=== PATIENT | female | born 1955 | race Caucasian/White ===

== ENCOUNTER 2024-03-25 14:55 | Outpatient (AMB) | payer MEDICARE, BC, SELFPAY ==
--- OUTSIDE RECORDS SUMMARY | 2024-03-25 14:57 | XMS_ITS ---
Author Organization [facility] Address [address] [place] [address] Care Team Providers Care Physiotherapy Practice Manager Name Role Phone Maite Quan MD Primary Care Provider [phone] Active Problems Problem Noted Date Diagnosed Date Osteopenia of multiple sites 11/24/2022 Malignant neoplasm of upper- outer quadrant of left breast in female, estrogen receptor positive 04/26/2021 Cancer Staging:Pathologic stage from 05/26/2021:Stage IA(pT1a, pN0, cM0, G2, ER+, IA+, HER2-) - Signed by Caesar Prince MD on 08/03/2021 Current Oncology Plans No current plan information found. Past Plans ONCOLOGY TREATMENT Plan Name Start Date Discontinue Date Treatment Medications Discontinue Reason Plan Provider Cycles [facility] TRASTUZUMAB ( NO LOAD), [id number], X1 YEAR (1.5/1 HR) -- 13 treatments 022 11/24/2022 albuterol (PROVENTIL)diphenhydr AMINE (BENADRYL)EPINEPHrine famotidine (PF) (PEPCID)hydrocortison e (SOLU-CORTEF) IVmeperidine (DEMEROL) 25 MG/MLSaline Flush 0.9 %sodium chloride (NS) 0.9 %sodium chloride 0.9% bolus (NS)trastuzumab-qyyp (TRAZIMERA) infusion Therapy Complete Caesar Prince MD 13 of 13 cycles started [facility] OP PACLITAXEL WEEKLY / TRASTUZUMAB WEEKLY (5 HRS) 08/26/19 22 12/14/2021 albuterol (PROVENTIL)dexamethas one (DECADRON)dexamethaso ne sod phosphate PF (DECADRON)diphenhydrA MINE (BENADRYL)EPINEPHrine famotidine (PEPCID)famotidine (PF) (PEPCID)hydrocortison e (SOLU-CORTEF) IVmeperidine (DEMEROL) 25 MG/MLPACLitaxel (TAXOL) chemo infusionpalonosetron (ALOXI)Saline Flush 0.9 %sodium chloride (NS) 0.9 %sodium chloride 0.9% bolus (NS)TRASTUZUMAB INFUSIONtrastuzumab-q yyp (TRAZIMERA) infusion Therapy Complete [place]ram[place] Caesar Sainz MD 4 of 4 cycles started Radiation Treatments * No radiation treatments are documented for this patient in [facility]. Treatments may have been administered in another system.
--- OUTSIDE RECORDS SUMMARY | 2024-03-25 14:57 | XMS_ITS | Clinical Summary ---
Author Organization [facility] Address [address] [place] [address] Care Team Providers Care Photostatic Copy Maker Name Role Phone Maite Quan MD Primary Care Provider [phone] Allergies No known active allergies Medications Medication Sig Dispensed Refills Start Date End Date Status atorvastatin (LIPITOR) tablet 10 mg Take 1 tablet (10 mg total) by mouth daily. 0 03/01/2021 Active FLUoxetine (PROzac) 20 MG capsule Take 1 capsule (20 mg total) by mouth daily. 0 03/07/2021 Active fluticasone (FLONASE) 50 MCG/ACT nasal spray spray/apply 1 spray in each nostril daily. 0 Active ondansetron (ZOFRAN-ODT) 8 MG disintegrating tablet Take 1 tablet (8 mg total) by mouth every 8 (eight) hours as needed for nausea. 15 tablet 11 08/25/2021 Active lidocaine-prilocaine (EMLA) cream Apply topically as needed. To mediport area 1 hour prior to access 30 g 0 08/25/2021 Active Biotin 5000 MCG CAPS Take by mouth. 0 Active anastrozole (ARIMIDEX) 1 MG tablet Take 1 tablet (1 mg total) by mouth daily 90 tablet 3 11/24/2022 Active Active Problems Problem Noted Date Diagnosed Date Osteopenia of multiple sites 11/24/2022 Malignant neoplasm of upper- outer quadrant of left breast in female, estrogen receptor positive 04/26/2021 Cancer Staging:Pathologic stage from 05/26/2021:Stage IA(pT1a, pN0, cM0, G2, ER+, AK+, HER2-) - Signed by Caesar Prince MD on 08/03/2021 Family History Medical History Relation Name Comments Cancer Father Hypertension Father Diabetes Mother Cancer Paternal Aunt Relation Name Status Comments Father Mother Paternal Aunt Alive Social History Tobacco Use Types Packs/Day Years Used Date Smoking Tobacco: Former Cigarettes 1 Q uit: 02/07/1988 Smokeless Tobacco: Never Alcohol Use Standard Drinks/Week Comments Yes 5 (1 standard drink = 0.6 oz pur e alcohol) Sex and Gender Information Value Date Recorded Sex Assigned at Male 10/13/2021 11:18 AM EDT Gender Identity Not on file Sexual Orientation Not on file Job Start Date Occupation Industry Not on file Not on file Not on file Last Filed Vital Signs Vital Sign Reading Time Taken Comments Blood Pressure 137/72 10/03/2023 10:52 AM EDT Pulse 62 10/03/2023 10:52 AM EDT Temperature 36.4 ??C (97.6 ??F) 10/03/2023 10:52 AM E DT Respiratory Rate 18 08/03/2022 10:10 AM EDT Oxygen Saturation 99% 10/03/2023 10:52 AM EDT Inhaled Oxygen Concentration - - Weight 61.3 kg (135 lb 3.2 oz) 10/03/2023 10:52 AM EDT Height 164.5 cm (5' 4.76 ) 03/09/2022 10:[address] Body Mass Index 22.66 03/09/2022 10:23 AM EST Plan of Treatment Health Maintenance Due Date Last Done Comments Hepatitis C Screening 1955 Depression Screening 1967 Preventative Health Evaluation 10/24/1973 Shingrix-Zoster Vaccine (1 of 2) 10/24/1974 Colon Cancer Screening (Colonoscopy) 10/24/2000 Breast Cancer Screening (Mammogram) 10/24/2005 DTap / Tdap / Td (2 - Td or Tdap) 02/22/2017 02/22/2007 Fall Risk Assessment 10/24/2020 Osteoporosis Screening (DEXA Scan) 10/24/2020 COVID-19 Vaccine ( season) 2023 08/06/2021, 11/09/2020, 03/06/2020, Additional history exists Influenza Vaccine (#1) 2023 , 10/22/2020, 10/22/2020, Additional history exists RSV Adult > 60+ Yrs or (1 - 1-dose 75+ series) 10/24/2030 Pneumococcal Vaccine Completed 05/09/2022, 05/08/19 Hepatitis B Vaccines Aged Out No long er eligible based on patient's age to complete this topic RSV Ped < 20 months Aged Out No longe r eligible based on patient's age to complete this topic Care Teams Photostatic Copy Maker Relationship Specialty Start Date End Date Maite Quan MD PCP - General Internal Medicine 04/26/21
--- OUTSIDE RECORDS SUMMARY | 2024-03-25 14:58 | XMS_ITS | Encounter Summary ---
Author Organization [facility] Address [address] [place] [address] Care Team Providers Care Literary Agent Name Role Phone Maite Quan MD Primary Care Provider Reason for Referral * Imaging (Routine) - Closed Specialty Diagnoses / Procedures Referred By Contac t Referred To Contact Radiology Diagnoses Other specified disorders of bone density and structure, multiple sites Procedures BD Bone Density DXA Axial Skeleton Caesar Tovar MD [address] [place] [phone] Phone: tel: fax: [address] [phone] Phone: tel: Referral ID Status Reason Start Date Expiration Date Visits Re quested Visits Authorized [id number] Closed 02/01/2024 01/31/2025 1 1 Reason for Visit * Imaging (Routine) - Closed Specialty Diagnoses / Procedures Referred By Contac t Referred To Contact Radiology Diagnoses Other specified disorders of bone density and structure, multiple sites Procedures BD Bone Density DXA Axial Skeleton Caesar Tovar MD [address] [place] [phone] Phone: tel: fax: [address] [phone] Phone: tel: Referral ID Status Reason Start Date Expiration Date Visits Re quested Visits Authorized [id number] Closed 02/01/2024 01/31/2025 1 1 Encounter Details Date Type Department Care Team (Latest Contact Info) Description 03/12/2024 10:13 AM EST - 03/12/2024 11:59 PM EST Hospital Encounter [facility] Bone Density [address] [place] [phone] Other specified disorders of bone density and structure, multiple sites Discharge Disposition: Home or Self Care Social History Tobacco Use Types Packs/Day Years Used Date Smoking Tobacco: Former Cigarettes Q uit: 02/07/1988 Smokeless Tobacco: Never Alcohol Use Standard Drinks/Week Comments Yes 5 (1 standard drink = 0.6 oz pur e alcohol) Comments Unknown Sex and Gender Information Value Date Recorded Sex Assigned at Female 03/11/2024 1:04 PM EST Legal Sex Female 9:53 AM EST Gender Identity Female 03/11/2024 1:04 PM EST Sexual Orientation Straight 03/11/2024 1: 04 PM EST documented as of this encounter Medications at Time of Discharge anastrozole (ARIMIDEX) 1 mg Take 1 tablet (1 mg total) by mouth 1 (one) time each day 90 tablet 3 01/10/2024 atorvastatin (LIPITOR) 10 mg tablet Take 1 tablet (10 mg total) by mouth at bedtime. 90 tablet 02/19/2024 biotin 5 mg capsule Take by mouth. FLUoxetine (PROzac) 20 mg capsule TAKE 1 CAPSULE BY MOUTH EVERY DAY 90 capsule 1 02/21/2024 fluticasone propionate (FLONASE) 50 mcg/actuation nasal spray spray/apply 1 spray in each nostril daily. lidocaine-prilocaine (EMLA) 2.5-2.5 % cream Apply topically as needed. To mediport area 1 hour prior to access 08/25/2021 ondansetron ODT (ZOFRAN-ODT) 8 mg disintegrating tablet Take 1 tablet (8 mg total) by mouth every 8 (eight) hours as needed for nausea. 08/25/2021 documented as of this encounter Discharge Disposition Disposition Code Departure Means Destination Home or Self Care documented in this encounter Plan of Treatment Upcoming Encounters Date Type Department Care Team (Late st Contact Info) Description 04/03/2024 10:45 AM EST Office Visit [facility] Hematology Oncology [address] [place] [phone] Caesar Tovar MD [address] [place] [phone] 05/14/2024 10:15 AM EDT Office Visit General Surgery - [place] [address] [phone] Nuvia Fonseca MD [address] [id number] 05/21/2024 11:00 AM EDT Office Visit Adult Medicine [address] [phone] Maite Quan MD [address] [place] [address] 10/22/2024 9:30 AM EDT Appointment Radiology Department - [address] [phone] documented as of this encounter Procedures Procedure Name Priority Date/Time Associated Diagnosis Comments BD BONE DENSITY DXA AXIAL SKELETON Routine 03/12/2024 10:34 AM EST Other specified disorders of bone density and structure, multiple sites documented in this encounter Results * BD Bone Density DXA Axial Skeleton (03/12/2024 10:34 AM EST) Anatomical Region Laterality Modality Wrist, Hip, L-spine Bone Densito metry 03/12/2024 1:55 PM EST Impressions 03/12/2024 1:56 PM EST Osteoporosis. ? Telerad LUISITO ([id number]) -------- FINAL REPORT -------- Dictated By: Twyla Ferrera Dictated Date: 03/12/2024 13:55 ET Assigned Physician: Twyla Ferrera Reviewed and Electronically Signed By: Twyla Ferrera Signed Date: 03/12/2024 13:56 ET Workstation ID: [id number] Transcribed By: Self Edit Transcribed Date: 03/12/2024 13:55 ET Narrative 03/12/2024 1:56 PM EST History: Low estrogen state due to menopause. Personal history of breast carcinoma, on anastrozole. Comparison: No comparison imaging at this institution. Findings: Bone densitometry is performed utilizing dual energy x-ray absorptiometry (DXA) in the [employer]ensear Prodigy unit. The lumbar spine and proximal femora are evaluated in the AP projection. The FRAX questionaire was completed. The results indicate osteoporosis, with a right femoral neck T-score of -3.1. The Z score is -1.4, indicating low bone mineral density for age. ??The detailed DEXA report will be mailed to the referring physician's office. DualFemur FRAX: 10-year Probability of Fracture: Major Osteoporotic 18.5 percent ??Hip 6.1 percent. Procedure Note Twyla Ferrera MD - 03/12/2024 History: Low estrogen state due to menopause. Personal history of breastcarcinoma, on anastrozole. Comparison: No comparison imaging at this institution. Findings: Bone densitometry is performed utilizing dual energy x-ray absorptiometry(DXA) in the Lunar Prodigy unit. The lumbar spine and proximal femora areevaluated in the AP projection. The FRAX questionaire was completed. The results indicate osteoporosis, with a right femoral neck T-score of-3.1. The Z score is -1.4, indicating low bone mineral density for age.The detailed DEXA report will be mailed to the referring physician'soffice. DualFemur FRAX: 10-year Probability of Fracture: Major Osteoporotic 18.5percent Hip 6.1 percent. IMPRESSION: Osteoporosis. Telepaula JORGE ([id number]) -------- FINAL REPORT -------- Dictated By: Twyla Ferrera Dictated Date: 03/12/2024 13:55 ET Assigned Physician: Twyla Ferrera Reviewed and Electronically Signed By: Twyla Ferrera Signed Date: 03/12/2024 13:56 ET Workstation ID: [id number] Transcribed By: Self Edit Transcribed Date: 03/12/2024 13:55 ET Caesar Tovar MD IMG DXA PROCEDURES Final Result documented in this encounter Visit Diagnoses Diagnosis Other specified disorders of bone density and structure, multiple sites Malignant neoplasm of upper-outer quadrant of left breast in female, estrogen receptor positive (CMS/HCC)- Primary Osteopenia of multiple sites Encounter for screening mammogram for breast cancer documented in this encounter Care Teams Literary Agent Relationship Specialty Start Date End Date Maite Quan MD [address] [place] [address] PCP - General 12/22/03 documented as of this encounter
--- OUTSIDE RECORDS SUMMARY | 2024-03-25 14:58 | XMS_ITS | Clinical Summary ---
Author Organization [facility] Address [address] [place] [phone] Phone Care Team Providers Care Manufacturer Agent Name Role Phone Maite Quan MD Primary Care Provider [phone] Allergies No known active allergies Medications biotin 5 mg capsule Take by mouth. Active fluticasone propionate (FLONASE) 50 mcg/actuation nasal spray spray/apply 1 spray in each nostril daily. Active lidocaine-prilocai ne (EMLA) 2.5-2.5 % cream Apply topically as needed. To [facility] area 1 hour prior to access 2 Active ondansetron ODT (ZOFRAN-ODT) 8 mg disintegrating tablet Take 1 tablet (8 mg total) by mouth every 8 (eight) hours as needed for nausea. 2 Active anastrozole (ARIMIDEX) 1 mg Take 1 tablet (1 mg total) by mouth 1 (one) time each day 90 tablet 3 4 Active FLUoxetine (PROzac) 20 mg capsule TAKE 1 CAPSULE BY MOUTH EVERY DAY 90 capsule 1 5 Active atorvastatin (LIPITOR) 10 mg tablet Take 1 tablet (10 mg total) by mouth at bedtime. 90 tablet 5 Active Active Problems Problem Noted Date Diagnosed Date Malignant neoplasm of upper- outer quadrant of left breast in female, estrogen receptor positive 10/20/2023 Osteopenia of multiple sites 11/24/2022 Encounters Date Type Department Care Team Description 03/12/2024 10:13 AM EST - 03/12/2024 11:59 PM EST Hospital Encounter [facility] Bone Density [address] [place] [address] Other specified disorders of bone density and structure, multiple sites Discharge Disposition: Home or Self Care from Last 3 Months Immunizations Name Administration Dates Next Due Pfizer SARS-CoV-2 COVID-19, mRNA, LNP-S, preservative free 08/06/2021,03/06/2020,02/14/2020 Surgical History Surgery Date Site/Laterality Comments CATARACT EXTRACTION, BILATERAL PROCEDURE:CATARACT EXTRACTION, BILATERAL COLONOSCOPY PROCEDURE:COLONOSCOPY LIPOMA RESECTION PROCEDURE:LIPOMA RESECTION;COMMENT:elbow CATARACT EXTRACTION Bilateral PROCEDURE: HISTORICAL CATARACT REMOVAL OTHER SURGICAL HISTORY Left PROCEDURE: ---- OTHER ----; COMMENT: lt lumpectomy w rad & chemo BREAST BIOPSY PROCEDURE: BX BREAST; PERC NEEDLE CORE W/IMAG GUID BREAST SURGERY PROCEDURE: ME UNLISTED PROCEDURE BREAST Medical History Medical History Date Comments Osteopenia DX:Osteopenia Lipoma DX:Lipoma;COMMEN T:right upper extremity Hyperlipidemia DX:Hyperlipidemi a Depression DX:Depression Iron deficiency anemia DX:Iron d eficiency anemia Depressive disorder, not els ewhere classified 04/29/2005 DX:Depressive disorder, not elsewhere classified Iron deficiency anemia, unspecified 04/29/2005 DX:Iron deficiency anemia, unspecified Malignant neoplasm of upper- outer quadrant of left breast in female, estrogen receptor positive (CMS/HCC) 04/26/2021 DX:Malignant neop lasm of upper-outer quadrant of left breast in female, estrogen receptor positive (HCC) Family History Medical History Relation Name Comments Cancer Father Hypertension Father Lung cancer Father hypertensi on, parkinson's Cancer Father's Sister Diabetes Mother biliary cirrohi s from meds, fatty liver Other: Other Mother parathyroid dis ease Breast cancer Mother's side 1st cousin Colon cancer Other paternal aunt a nd uncle (stomach) Colon cancer Neg Hx Ovarian cancer Neg Hx Pancreatic cancer Neg Hx Prostate cancer Neg Hx Uterine cancer Neg Hx Relation Name Status Comments Father Father's Sister Alive Mother Mother's side 1st cousin Alive Other Social History Tobacco Use Types Packs/Day Years [...] Orientation Straight 03/11/2024 1: 04 PM EST Obstetrics History Last Filed Vital Signs Vital Sign Reading Time Taken Comments Blood Pressure 119/69 11/21/2023 10:18 AM EDT Pulse 70 11/21/2023 10:18 AM EDT Temperature - - Respiratory Rate - - Oxygen Saturation - - Inhaled Oxygen Concentration - - Weight 61.7 kg (136 lb) 11/21/2023 10:18 AM EDT Height 165.1 cm (5' 5 ) 11/21/2023 10:18 AM EDT Body Mass Index 22.63 11/21/2023 10:18 AM EDT Plan of Treatment Upcoming Encounters Date Type Department Care Team (Late st Contact Info) Description 04/03/2024 10:45 AM EST Office Visit [facility] Hematology Oncology [address] [place] [phone] Caesar Tovar MD [address] [place] [phone] 05/14/2024 10:15 AM EDT Office Visit General Surgery [facility] [address] [phone] Nuvia Fonseca MD [address] [address] 05/21/2024 11:00 AM EDT Office Visit Adult Medicine [address] [phone] Maite Quan MD [address] [place] [address] 10/22/2024 9:30 AM EDT Appointment Radiology Department - [address] [phone] Health Maintenance Due Date Last Done Comments Zoster Vaccines (1 of 2) 10/24/1974 RSV Immunization Patients 60+ Years Old (1 - Risk 60-74 years 1-dose series) 2015 Colorectal Cancer Screening: FIT-DNA (Cologuard) 01/14/2022 Depression Screening 01/14/2022 Falls Risk Assessment 01/14/2022 Hepatitis C Screening 01/14/2022 Medicare Annual Wellness Visit 01/14/2022 Social Influencers of Health Screening 01/14/2022 Breast Cancer Screening 10/10/2025 10/11/19, 10/11/2023, 09/29/2022, Additional history exists DTaP,Tdap,and Td Vaccines (3 - Td or Tdap) 09/01/2027 08/31/2017, 02/22/2007 Cholesterol Screening (Lipid Panel) 11/20/2028 11/21/2023 Osteoporosis Screening (Bone Density Screening) 03/12/2034 03/12/2024, 03/25/2022, 03/13/2019 Pneumococcal Vaccine: 50+ Years Completed 05/09/2022, 05/07/2021 COVID-19 Vaccine Completed 11/14/2023, , 06/15/2022, Additional history exists Influenza Vaccine Completed 11/14/2023, , 12/10/2021, Additional history exists HIB Vaccines Aged Out No longer eligi ble based on patient's age to complete this topic HPV Vaccines Aged Out No longer eligi ble based on patient's age to complete this topic Hepatitis A Vaccines Aged Out No long er eligible based on patient's age to complete this topic Hepatitis B Vaccines Aged Out No long er eligible based on patient's age to complete this topic IPV Vaccines Aged Out No longer eligi ble based on patient's age to complete this topic MMR Vaccines Aged Out No longer eligi ble based on patient's age to complete this topic Meningococcal ACWY Vaccine Aged Out N o longer eligible based on patient's age to complete this topic Meningococcal B Vacine Aged Out No lo nger eligible based on patient's age to complete this topic RSV Immunization Patients Under 20 months Aged Out No longer eligible based on patient's age to complete this topic Varicella Vaccines Aged Out No longer eligible based on patient's age to complete this topic Procedures Procedure Name Priority Date/Time Associated Diagnosis Comments BD BONE DENSITY DXA AXIAL SKELETON Routine 03/12/2024 10:34 AM EST Other specified disorders of bone density and structure, multiple sites DIAGNOSTIC MAMMOGRAPHY INCLUDING CAD BILATERAL Routine 10/11/2023 9:41 AM EDT Personal history of malignant neoplasm of breast from Last 3 Months or Most Recently Relevant to Health Maintenance Results * BD Bone Density DXA Axial Skeleton (03/12/2024 10:34 AM EST) Anatomical Region Laterality Modality Wrist, Hip, L-spine Bone Densito metry 03/12/2024 1:55 PM EST Impressions 03/12/2024 1:56 PM EST Osteoporosis. ? Telerad LUISITO ([id number]) -------- FINAL REPORT -------- Dictated By: Twyla Ferrera Dictated Date: 03/12/2024 13:55 ET Assigned Physician: Twyla Ferrera Reviewed and Electronically Signed By: Twyla Ferrera Signed Date: 03/12/2024 13:56 ET Workstation ID: [id number] Transcribed By: Self Edit Transcribed Date: 03/12/2024 13:55 ET Narrative 03/12/2024 1:56 PM EST History: Low estrogen state due to menopause. Personal history of breast carcinoma, on anastrozole. Comparison: No comparison imaging at this institution. Findings: Bone densitometry is performed utilizing dual energy x-ray absorptiometry (DXA) in the [employer] unit. The lumbar spine and proximal femora [...] utilizing dual energy x-ray absorptiometry(DXA) in the [employer] unit. The lumbar spine and proximal femora [...] Osteoporotic 18.5percent Hip 6.1 percent. IMPRESSION: Osteoporosis. Telerad LUISITO ([id number]) -------- FINAL REPORT -------- Dictated By: Twyla Ferrera Dictated Date: 03/12/2024 13:55 ET Assigned Physician: Twyla Ferrera Reviewed and Electronically Signed By: Twyla Ferrera Signed Date: 03/12/2024 13:56 ET Workstation ID: [id number] Transcribed By: Self Edit Transcribed Date: 03/12/2024 13:55 ET us Subramony Subcece-Alistair PASTRANA IMG DXA PROCEDURES Final Result * DIAGNOSTIC MAMMOGRAPHY INCLUDING CAD BILATERAL (10/11/2023 9:41 AM EDT) Anatomical Region Laterality Modality Mammography 09/29/2022 9:31 AM EDT Narrative 10/11/2023 9:59 AM EDT This is a summary report. The complete report is available in the patient's medical record. If you cannot access the medical record, please contact the sending organization for a detailed fax or copy. History: Personal history of left lumpectomy for breast cancer in May 2021. Study: Bilateral diagnostic mammography with tomosynthesis and CAD Technique: Bilateral full-field digital diagnostic mammography is obtained and read in conjunction with computer aided detection. ??Tomosynthesis as well as 2D C- View imaging were obtained. Comparison: Comparison made to multiple priors, most recent September 29, 2022, and most remote April 30, 2009. Breast composition: The breast tissue is heterogeneously dense, which may obscure small masses. Right breast: No suspicious masses, suspicious calcifications or other abnormalities are seen. Left breast: Postlumpectomy changes. ??No suspicious masses, suspicious calcifications or other abnormalities are seen. IMPRESSION: Impression: Bilateral breasts: Benign, no specific mammographic evidence of malignancy. ??Normal interval follow-up is recommended in 12 months. BI-RADS: Category 2: Benign [address] [id number] [phone] [id number] Procedure Note Brian Rowley MD - 11/22/2023 This is a summary report. The complete report is available in thepatient's medical record. If you cannot access the medical record, pleasecontact the sending organization for a detailed fax or copy. History: Personal history of left lumpectomy for breast cancer in May2021. Study: Bilateral diagnostic mammography with tomosynthesis and CAD Technique: Bilateral full-field digital diagnostic mammography is obtainedand read in conjunction with computer aided detection. Tomosynthesis aswell as 2D C-View imaging were obtained. Comparison: Comparison made to multiple priors, most recent September, and most remote April 30, 2009. Breast composition: The breast tissue is heterogeneously dense, which mayobscure small masses. Right breast: No suspicious masses, suspicious calcifications or otherabnormalities are seen. Left breast: Postlumpectomy changes. No suspicious masses, suspiciouscalcifications or other abnormalities are seen. IMPRESSION: Impression: Bilateral breasts: Benign, no specific mammographic evidence ofmalignancy. Normal interval follow-up is recommended in 12 months. BI-RADS: Category 2: Benign [address] [address] [id number] Maite Quan MD IMG BI PROCEDURES Final Result from Last 3 Months or Most Recently Relevant to Health Maintenance Insurance MEDICARE [facility] Advance Directives Documents on File Type Date Recorded Patient Crystal Cutter Expl anation Health Care Decision (hx) 08/31/2021 AD MUÑOZ DIRECTIVE Health Care Decision (hx) 08/31/2021 AD MUÑOZ DIRECTIVE Health Care Decision (hx) 08/31/2021 AD MUÑOZ DIRECTIVE Health Care Decision (hx) 08/31/2021 AD MUÑOZ DIRECTIVE Health Care Decision (hx) 08/31/2021 AD MUÑOZ DIRECTIVE Health Care Decision (hx) 08/31/2021 AD MUÑOZ DIRECTIVE Health Care Decision (hx) 08/31/2021 AD MUÑOZ DIRECTIVE Health Care Decision (hx) 08/31/2021 AD MUÑOZ DIRECTIVE Health Care Decision (hx) 08/31/2021 AD MUÑOZ DIRECTIVE Health Care Decision (hx) 08/31/2021 AD MUÑOZ DIRECTIVE Health Care Decision (hx) 08/31/2021 AD MUÑOZ DIRECTIVE Health Care Decision (hx) 08/31/2021 AD MUÑOZ DIRECTIVE Health Care Decision (hx) 08/31/2021 AD MUÑOZ DIRECTIVE Health Care Decision (hx) 08/31/2021 AD MUÑOZ DIRECTIVE Health Care Decision (hx) 08/31/2021 AD MUÑOZ DIRECTIVE Health Care Decision (hx) 08/31/2021 AD MUÑOZ DIRECTIVE Health Care Decision (hx) 08/31/2021 AD MUÑOZ DIRECTIVE Health Care Decision (hx) 08/31/2021 AD MUÑOZ DIRECTIVE Health Care Decision (hx) 08/31/2021 AD MUÑOZ DIRECTIVE Health Care Decision (hx) 08/31/2021 AD MUÑOZ DIRECTIVE Health Care Decision (hx) 08/31/2021 AD MUÑOZ DIRECTIVE Health Care Decision (hx) 08/31/2021 AD MUÑOZ DIRECTIVE Health Care Decision (hx) 08/31/2021 AD MUÑOZ DIRECTIVE Health Care Decision (hx) 08/31/2021 AD MUÑOZ DIRECTIVE Health Care Decision (hx) 08/31/2021 AD MUÑOZ DIRECTIVE Health Care Decision (hx) 08/31/2021 AD MUÑOZ DIRECTIVE Health Care Decision (hx) 08/31/2021 AD MUÑOZ DIRECTIVE Health Care Decision (hx) 08/31/2021 AD MUÑOZ DIRECTIVE Health Care Decision (hx) 08/31/2021 AD MUÑOZ DIRECTIVE Health Care Decision (hx) 08/31/2021 AD MUÑOZ DIRECTIVE Health Care Decision (hx) 08/31/2021 AD MUÑOZ DIRECTIVE Health Care Decision (hx) 08/31/2021 AD MUÑOZ DIRECTIVE Health Care Decision (hx) 08/31/2021 AD MUÑOZ DIRECTIVE Health Care Decision (hx) 08/31/2021 AD MUÑOZ DIRECTIVE Health Care Decision (hx) 08/31/2021 AD MUÑOZ DIRECTIVE Health Care Decision (hx) 08/31/2021 AD MUÑOZ DIRECTIVE Health Care Decision (hx) 05/25/2021 AD MUÑOZ DIRECTIVE Health Care Decision (hx) 05/25/2021 AD MUÑOZ DIRECTIVE Health Care Decision (hx) 05/25/2021 AD MUÑOZ DIRECTIVE Health Care Decision (hx) 05/25/2021 AD MUÑOZ DIRECTIVE Health Care Decision (hx) 05/25/2021 AD MUÑOZ DIRECTIVE Health Care Decision (hx) 05/25/2021 AD MUÑOZ DIRECTIVE Health Care Decision (hx) 05/25/2021 AD MUÑOZ DIRECTIVE Health Care Decision (hx) 05/25/2021 AD MUÑOZ DIRECTIVE Health Care Decision (hx) 05/25/2021 AD MUÑOZ DIRECTIVE Health Care Decision (hx) 05/25/2021 AD MUÑOZ DIRECTIVE Health Care Decision (hx) 05/25/2021 AD MUÑOZ DIRECTIVE Health Care Decision (hx) 05/25/2021 AD MUÑOZ DIRECTIVE Health Care Decision (hx) 05/25/2021 AD MUÑOZ DIRECTIVE Health Care Decision (hx) 05/25/2021 AD MUÑOZ DIRECTIVE Health Care Decision (hx) 05/25/2021 AD MUÑOZ DIRECTIVE Health Care Decision (hx) 05/25/2021 AD MUÑOZ DIRECTIVE Health Care Decision (hx) 05/25/2021 AD MUÑOZ DIRECTIVE Health Care Decision (hx) 05/25/2021 AD MUÑOZ DIRECTIVE Health Care Decision (hx) 05/25/2021 AD MUÑOZ DIRECTIVE Health Care Decision (hx) 05/25/2021 AD MUÑOZ DIRECTIVE Health Care Decision (hx) 05/25/2021 AD MUÑOZ DIRECTIVE Health Care Decision (hx) 05/25/2021 AD MUÑOZ DIRECTIVE Health Care Decision (hx) 05/25/2021 AD MUÑOZ DIRECTIVE Health Care Decision (hx) 05/25/2021 AD MUÑOZ DIRECTIVE Health Care Decision (hx) 05/25/2021 AD MUÑOZ DIRECTIVE Health Care Decision (hx) 05/25/2021 AD MUÑOZ DIRECTIVE Health Care Decision (hx) 05/25/2021 AD MUÑOZ DIRECTIVE Health Care Decision (hx) 05/25/2021 AD MUÑOZ DIRECTIVE Health Care Decision (hx) 05/25/2021 AD MUÑOZ DIRECTIVE Health Care Decision (hx) 05/25/2021 AD MUÑOZ DIRECTIVE Health Care Decision (hx) 05/25/2021 AD MUÑOZ DIRECTIVE Health Care Decision (hx) 05/25/2021 AD MUÑOZ DIRECTIVE Health Care Decision (hx) 05/25/2021 AD MUÑOZ DIRECTIVE Health Care Decision (hx) 05/25/2021 AD MUÑOZ DIRECTIVE Health Care Decision (hx) 05/25/2021 AD MUÑOZ DIRECTIVE Health Care Decision (hx) 05/25/2021 AD MUÑOZ DIRECTIVE Health Care Decision (hx) 05/25/2021 AD MUÑOZ DIRECTIVE Health Care Decision (hx) 05/25/2021 AD MUÑOZ DIRECTIVE Health Care Decision (hx) 05/25/2021 AD MUÑOZ DIRECTIVE Health Care Decision (hx) 05/25/2021 AD MUÑOZ DIRECTIVE Health Care Decision (hx) 05/25/2021 AD MUÑOZ DIRECTIVE Care Teams Manufacturer Agent Relationship Specialty Start Date End Date Maite Quan MD [address] [place] [address] PCP - General 12/22/03
--- NOTE | 2024-03-25 14:59 | AM.OFFWIN_ITS ---
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 Patient Tobacco Use Status: Former Tobacco user Allergies No Known Allergies Allergy (Unverified 03/25/24 15:02) Do you need a note to return to daycare/school/sports/work: No HPI HPI Comments History of Present Illness Details 68 y/o female patient who presents to [facility] walk [facility] clinic with c/o left wrist pain after she fell on Ice this morning. Reports mild swelling and TTP. [facility] Medical History (Updated 03/25/24 @ 15:45 by Christiana Parkinson NP) Left wrist injury Social History Patient Tobacco Use Status: Former Tobacco user Review of Systems Const All systems reviewed & are unremarkable except as noted in HPI and below Physical Exam Vital Signs: Last Vital Signs Pulse 78 03/25/24 15:01 BP 114/70 03/25/24 15:01 Pulse Ox 98 03/25/24 15:01 Oxygen Delivery Method Room Air 03/25/24 15:01 Const General: cooperative and no acute distress; No comfortable Orientation/consciousness: patient oriented x3 Neuro General: patient oriented x3, gait normal and moves all extremities Extrem Left upper extremity: wrist (Mild swelling dorsal hand/wrist) and hand Details: normal capillary refill, tenderness Location: of the dorsal hand Location: over the radial aspect, vascular exam Details: radial pulse present, ulnar pulse present and normal capillary refill; not cool and no cyanosis, normal ROM of fingers and swelling Location: of the dorsal hand Location: over the radial aspect; no unusual warmth and no crepitus Assessment & Plan Assessment & Plan (1) Left wrist injury: Code(s): S69.92XA - Unspecified injury of left wrist, hand and finger(s), initial encounter Qualifiers: Encounter type: initial encounter Qualified Code(s): S69.92XA - Unspecified injury of left wrist, hand and finger(s), initial encounter Plan Ordered Xray Wrist/Hand Ice/Hot Wrapped Wrist with Tariq NSAIDs for pain relief. Orders: Orders XR hand wrist LT Today S69.92XA - Unspecified injury of left wrist, hand and finger(s), initial encounter Coding Level of Care Code Est Pt Level 4 (13268) Diagnoses Injury of left wrist, initial encounter S69.92XA Encounter type: initial encounter Time Spent (min) 20
[2024-03-25 15:01] VITALS: BP 114/70; PULSE 78; O2SAT 98
== END 2024-03-25 15:39 | disposition home or self-care (01) ==
PROVIDERS: PCP Internal Medicine; Visit Provider Nurse Practitioner Family
DX: S69.92XA Unspecified injury of left wrist, hand and finger(s), initial encounter (principal)

== ENCOUNTER 2024-03-25 14:55 | Outpatient (REF) | payer MEDICARE, BC, SELFPAY ==
--- NOTE | ~2024-03-25 | XR_ITS ---
CLINICAL HISTORY: S69.92XA - Unspecified injury of left wrist, hand and finger(s), initial... 3 view left hand Comparison: None Findings: No acute fracture. No dislocation. There is osteopenia. There are mild arthritic changes. No erosions. No radiopaque foreign body. IMPRESSION: 1. No acute findings This document has been electronically signed by: Denise Blas MD on 03/25/2024 15:39:45
--- OUTSIDE RECORDS SUMMARY | 2024-03-25 15:20 | XMS_ITS | Encounter Summary ---
Author Organization [facility] Address [address] [place] [address] Care Team Providers Care Wheel Alignment Mechanic Name Role Phone Maite Quan MD Primary Care Provider [phone] Reason for Referral * Imaging (Routine) - Closed Specialty Diagnoses / Procedures Referred By Contac t Referred To Contact Radiology Diagnoses Other specified disorders of bone density and structure, multiple sites Procedures BD Bone Density DXA Axial Skeleton Caesar Tovar MD [address] [place] [phone] Phone: tel: fax: [address] [address] Phone: tel: Referral ID Status Reason Start Date Expiration Date Visits Re quested Visits Authorized [id number] Closed 02/01/2024 01/31/2025 1 1 Reason for Visit * Imaging (Routine) - Closed Specialty Diagnoses / Procedures Referred By Contac t Referred To Contact Radiology Diagnoses Other specified disorders of bone density and structure, multiple sites Procedures BD Bone Density DXA Axial Skeleton Caesar Tovar MD [address] [place] [phone] Phone: tel: fax: [address] [address] Phone: tel: Referral ID Status Reason Start Date Expiration Date Visits Re quested Visits Authorized [id number] Closed 02/01/2024 01/31/2025 1 1 Encounter Details Date Type Department Care Team (Latest Contact Info) Description 03/12/2024 10:13 AM EST - 03/12/2024 11:59 PM EST Hospital Encounter [facility] Bone Density [address] [place] [phone] Other specified disorders of bone density and [...] Description 04/03/2024 10:45 AM EST Office Visit [facility] Hematology Oncology [address] [place] [address] Caesar Tovar MD [address] [place] [phone] 05/14/2024 10:15 AM EDT Office Visit General Surgery - [place] [address] [phone] Nuvia Fonseca MD [address] [phone] 05/21/2024 11:00 AM EDT Office Visit Adult Medicine [address] [phone] Maite Quan MD [address] [place] [address] 10/22/2024 9:30 AM EDT Appointment Radiology Department - [address] [phone] documented as of this encounter Procedures Procedure [...] 1:56 PM EST Osteoporosis. ? Telerad LUISITO ([id number]) -------- FINAL REPORT -------- Dictated By: Twyla Ferrera Dictated Date: 03/12/2024 13:55 ET Assigned Physician: Twyla Ferrera Reviewed and Electronically Signed By: Twyla Ferrera Signed Date: 03/12/2024 13:56 ET Workstation ID: [id number] Transcribed By: Self Edit Transcribed Date: 03/12/2024 13:55 ET Narrative 03/12/2024 1:56 PM EST History: Low estrogen state due to menopause. Personal history of breast carcinoma, on anastrozole. Comparison: No comparison imaging at this institution. Findings: Bone densitometry is performed utilizing dual energy x-ray absorptiometry (DXA) in the [employer] unit. The lumbar spine and proximal [...] Hip 6.1 percent. IMPRESSION: Osteoporosis. Telepaula JORGE ([id number]) -------- FINAL REPORT -------- Dictated By: Twyla Ferrera Dictated Date: 03/12/2024 13:55 ET Assigned Physician: Twyla Ferrera Reviewed and Electronically Signed By: Twyla Ferrera Signed Date: 03/12/2024 13:56 ET Workstation ID: [id number] Transcribed By: Self Edit Transcribed Date: 03/12/2024 [...] cancer documented in this encounter Care Teams Wheel Alignment Mechanic Relationship Specialty Start Date End Date Maite Quan MD [address] [place] [address] PCP - General 12/22/03 documented as of this encounter
--- OUTSIDE RECORDS SUMMARY | 2024-03-25 15:20 | XMS_ITS | Clinical Summary ---
Author Organization [facility] Address [address] [place] [address] Care Team Providers Care Commercial Accountant Name Role Phone Maite Quan MD Primary Care Provider [phone] Allergies No known active allergies Medications Medication [...] from 05/26/2021:Stage IA(pT1a, pN0, cM0, G2, ER+, MT+, HER2-) - Signed by Caesar Prince MD [...] age to complete this topic Care Teams Commercial Accountant Relationship Specialty Start Date End Date Maite Quan MD PCP - General Internal Medicine 04/26/21
--- OUTSIDE RECORDS SUMMARY | 2024-03-25 15:20 | XMS_ITS | Encounter Summary ---
Author Organization [facility] Address [address] [place] [address] Care Team Providers Care Loss Prevention Investigator Name Role Phone Maite Quan MD Primary Care Provider Encounter Details Date Type Department Care Team Description 09/08/2021 Social Work [facility] Oncology Services [address] [place] [address] Mateo Orozco, [facility] Social History Tobacco Use Types Packs/Day Years [...] file Not on file Not on file COVID-19 Exposure Response Date Recorded In the last 10 days, have yo u been in contact with someone who was confirmed or suspected to have Coronavirus/COVID-19? No / Unsure 09/08/2021 9:42 AM EDT documented as of this encounter Plan of Treatment Not on file documented as of this encounter Visit Diagnoses Not on filedocumented in this encounter Care Teams Loss Prevention Investigator Relationship Specialty Start Date End Date Maite Quan MD PCP - General Internal Medicine 04/26/21 documented as of this encounter
--- OUTSIDE RECORDS SUMMARY | 2024-03-25 15:20 | XMS_ITS ---
Author Organization [facility] Address [address] [place] [address] Care Team Providers Care Vice President Of Sales Name Role Phone Maite Quan MD Primary Care Provider [phone] Active Problems Problem Noted Date Diagnosed Date Osteopenia of multiple sites 11/24/2022 Malignant neoplasm of upper- outer quadrant of left breast in female, estrogen receptor positive 04/26/2021 Cancer Staging:Pathologic stage from 05/26/2021:Stage IA(pT1a, pN0, cM0, G2, ER+, MN+, HER2-) - Signed by Caesar Prince MD on 08/03/2021 Current Oncology Plans No current plan information found. Past Plans ONCOLOGY TREATMENT Plan Name Start Date Discontinue Date Treatment Medications Discontinue Reason Plan Provider Cycles [facility] BCN OP TRASTUZUMAB ( NO LOAD), [id number], X1 YEAR (1.5/1 HR) -- 13 treatments 022 11/24/2022 albuterol (PROVENTIL)diphenhydr AMINE (BENADRYL)EPINEPHrine famotidine (PF) (PEPCID)hydrocortison e (SOLU-CORTEF) IVmeperidine (DEMEROL) 25 MG/MLSaline Flush 0.9 %sodium chloride (NS) 0.9 %sodium chloride 0.9% bolus (NS)trastuzumab-qyyp (TRAZIMERA) infusion Therapy Complete Caesar Prince MD 13 of 13 cycles started [facility] BCN OP PACLITAXEL WEEKLY / TRASTUZUMAB WEEKLY [...] treatments are documented for this patient in [facility]. Treatments may have been administered in another system.
--- OUTSIDE RECORDS SUMMARY | 2024-03-25 15:20 | XMS_ITS | Clinical Summary ---
Author Organization [facility] Address [address] [place] [phone] Phone Care Team Providers Care Inclusion Special Educator Name Role Phone Maite Quan MD Primary Care Provider [phone] Allergies No known active allergies Medications biotin 5 mg capsule Take by mouth. Active fluticasone propionate (FLONASE) 50 mcg/actuation nasal spray spray/apply 1 spray in each nostril daily. Active lidocaine-prilocai ne (EMLA) 2.5-2.5 % cream Apply topically as needed. To [facility] area 1 hour prior to access 2 [...] - 03/12/2024 11:59 PM EST Hospital Encounter [facility] Bone Density [address] [place] [address] Other specified disorders of bone [...] NEEDLE CORE W/IMAG GUID BREAST SURGERY PROCEDURE: AK UNLISTED PROCEDURE BREAST Medical History Medical History [...] Description 04/03/2024 10:45 AM EST Office Visit [facility] Hematology Oncology [address] [place] [phone] Caesar Tovar MD [address] [place] [phone] 05/14/2024 10:15 AM EDT Office Visit General [facility] [address] [phone] Nuvia Fonseca MD [address] [address] 05/21/2024 11:00 AM EDT Office Visit Adult Medicine [address] [phone] Maiet Quan MD [address] [place] [address] 10/22/2024 9:30 AM EDT Appointment Radiology Department - [address] [phone] Health Maintenance Due Date Last Done Comments [...] 1:56 PM EST Osteoporosis. ? [employer] LUISIT[facility] ([id number]) -------- FINAL REPORT -------- Dictated By: Twyla Ferrera Dictated Date: 03/12/2024 13:55 ET Assigned Physician: Twyla Ferrera Reviewed and Electronically Signed By: Twyla Ferrera Signed Date: 03/12/2024 13:56 ET Workstation ID: [id number] Transcribed By: Self Edit Transcribed Date: 03/12/2024 13:55 ET Narrative 03/12/2024 1:56 PM EST History: Low estrogen state due to menopause. Personal history of breast carcinoma, on anastrozole. Comparison: No comparison imaging at this institution. Findings: Bone densitometry is performed utilizing dual energy x-ray absorptiometry (DXA) in the [employer]creen unit. The lumbar spine and proximal femora [...] utilizing dual energy x-ray absorptiometry(DXA) in the Scripted unit. The lumbar spine and proximal femora [...] Hip 6.1 percent. IMPRESSION: Osteoporosis. [employer] [facility]ISIT[facility] ([id number]) -------- FINAL REPORT -------- Dictated By: Twyla Ferrera Dictated Date: 03/12/2024 13:55 ET Assigned Physician: Twyla Ferrera Reviewed and Electronically Signed By: Twyla Ferrera Signed Date: 03/12/2024 13:56 ET Workstation ID: [id number] Transcribed By: Self Edit Transcribed Date: 03/12/2024 [...] in 12 months. BI-RADS: Category 2: Benign [address] [id number] [phone] Procedure Note Brian Rowley MD - 11/22/2023 [...] in 12 months. BI-RADS: Category 2: Benign [address] [id number] [phone] Maite Quan MD IMG BI PROCEDURES Final Result from Last 3 Months or Most Recently Relevant to Health Maintenance Insurance MEDICARE [facility] Advance Directives Documents on File Type Date Recorded Patient Broadcast Operations Technician Expl anation Health Care Decision (hx) 08/31/2021 [...] (hx) 05/25/2021 AD MUÑOZ DIRECTIVE Care Teams Inclusion Special Educator Relationship Specialty Start Date End Date Maite Quan MD [address] [place] [address] PCP - General 12/22/03
== END 2024-03-25 14:56 | disposition home or self-care (01) ==
LOC: HO.HMGCX 14:55
PROVIDERS: PCP Internal Medicine; Visit Provider Nurse Practitioner Family
DX: S69.92XA Unspecified injury of left wrist, hand and finger(s), initial encounter (principal)
CPT/HCPCS: 73110; 73130; 99212

== ENCOUNTER → 2024-03-25 15:19 | Outpatient (BNV) | payer MEDICARE, BC, SELFPAY | PROVIDERS: PCP Internal Medicine; Visit Provider Radiology Diagnostic Radiology | DX: S69.92XA Unspecified injury of left wrist, hand and finger(s), initial encounter (principal) | CPT/HCPCS: 73130 ==